=== PATIENT | female | born 1935 | race Caucasian/White ===

== ENCOUNTER 2016-10-18 10:06 | Outpatient (CLI) | payer OTHER ==
[~2016-10-18 10:06] MED LIST: CIPR-260 PO; GLIM4TAB2 PO; LEVO75TA7 PO; OMEP40CA33 PO; OXYB5TAB11 PO; SITA1TAB10 PO
== END 2016-10-18 19:50 | disposition home or self-care (01) ==
LOC: SUS 10:06
PROVIDERS: ATTEND Internal Medicine
DX: E87.5 Hyperkalemia (principal)
CPT/HCPCS: 76770

== ENCOUNTER 2016-11-12 11:13 | Outpatient (CLI) | payer OTHER ==
[~2016-11-12 11:13] MED LIST changes: +BACL10TA; +LEVO25TA7; +RABE20TA5; +SIMV10TA6; +SITA1TAB9
== END 2016-11-12 18:57 | disposition home or self-care (01) ==
LOC: SRD 11:13
PROVIDERS: ATTEND Internal Medicine
DX: M25.572 Pain in left ankle and joints of left foot (principal); Z87.828 Personal history of other (healed) physical injury and trauma

== ENCOUNTER 2018-02-06 08:48 | Inpatient (IN) | payer OTHER ==
[2018-02-05] MEDS: LR 1,000 ML IV SCH ×2 (11:30→13:57)
[2018-02-05] MEDS: fentaNYL CITRATE/PF 100 MCG/2 ML AMP IVP PRN ×2 (11:35→11:52)
[2018-02-05 12:23] VITALS: BP_SYST 130
[2018-02-05 12:48] VITALS: BP_SYST 130
[2018-02-05] MEDS: KETOROLAC TROMETHAMINE 15 MG VIAL IVP SCH ×2 (13:52→21:06)
[2018-02-05] MEDS: ceFAZolin SODIUM 2 GM in D5W 100 ML IV SCH ×2 (14:23→21:05)
[2018-02-05] MEDS: NORMAL SALINE 5 ML DISP.SYRIN IVF SCH ×2 (14:26→21:06)
[2018-02-05 16:29] VITALS: BP_SYST 123
[2018-02-05 20:00] VITALS: BP_SYST 135
[2018-02-05] MEDS: FLECAINIDE ACETATE 50 MG TABLET (TAMBOCOR) PO SCH (21:05)
[~2018-02-06] VITALS: Ht 165.1 cm; Wt 66.7 kg
[2018-02-06] VITALS (9 sets, daily range): BP systolic 83–164
[2018-02-06] MEDS: LR 1,000 ML IV SCH (02:31)
[2018-02-06] MEDS: OMEPRAZOLE 20 MG CAPSULE.DR (PriLOSEC) PO SCH (05:58)
[2018-02-06] MEDS: ceFAZolin SODIUM 2 GM in D5W 100 ML IV SCH (05:58)
[2018-02-06] MEDS: KETOROLAC TROMETHAMINE 15 MG VIAL IVP SCH (05:58)
[2018-02-06] MEDS: NORMAL SALINE 5 ML DISP.SYRIN IVF SCH ×3 (05:59→23:21)
[~2018-02-06 08:48] MED LIST changes: +APIX5TAB PO; +APIX5TAB4 PO; -BACL10TA; +CEFAZOLIN SOD 2 GM in D5W 50 ML IV ONE; +FLEC50TA2 PO; +HYDROcodone/ACETAMIN 10-325 MG TAB PO PRN; +HYDROcodone/ACETAMIN 5-325 MG TAB (NORCO/ VICODIN) PO PRN; -LEVO25TA7; +MORPHINE 2 MG/ML INJ. SYRINGE IVP PRN; +ONDANSETRON HCL 4 MG/2 ML VIAL IVP PRN; +POLYMYXIN 500,000/BACIT.10,000 UNITS in NS IRR 1 L IR ONE; -RABE20TA5; -SIMV10TA6; +SIMV40TA2 PO; +SITA100T11 PO; -SITA1TAB9; +fentaNYL CITRATE/PF 100 MCG/2 ML AMP IVP PRN; +fentaNYL CITRATE/PF 100 MCG/2 ML AMP ONE
[2018-02-06] MEDS: FLECAINIDE ACETATE 50 MG TABLET (TAMBOCOR) PO SCH ×2 (08:48→22:26)
[2018-02-06] MEDS ORDERED: LEVOTHYROXINE SODIUM 0.075 MG TABLET PO SCH (09:00)
[2018-02-06] MEDS ORDERED: DILTIAZEM HCL 25 MG/5 ML VIAL IVP ONE ×3 (09:30→11:45)
[2018-02-06 10:21] LABS: BASOPHILS # (AUTO) 0.1 K/uL (0.0-0.2); BASOPHILS % (AUTO) 0.7 % (0.0-2.0); EOSINOPHILS # (AUTO) 0.1 K/uL (0.0-0.4); EOSINOPHILS % (AUTO) 0.7 % (0.0-4.0); HEMATOCRIT 36.7 % (36-48); HEMOGLOBIN 12.4 g/dL (12.0-16.0); LYMPHOCYTES # (AUTO) 1.8 K/uL (1.0-5.5); LYMPHOCYTES % (AUTO) 16.7 % (20.5-51.5); MEAN CORPUSCULAR HEMOGLOBIN 31 pg (27-31); MEAN CORPUSCULAR HGB CONC 34 % (32-36); MEAN CORPUSCULAR VOLUME 90 fL (79.0-98.0); MONOCYTES # (AUTO) 0.7 K/uL (0.0-1.0); MONOCYTES % (AUTO) 6.6 % (1.7-9.3); NEUTROPHILS # (AUTO) 7.8 K/uL (1.8-7.7); NEUTROPHILS % (AUTO) 75.3 % (40.0-70.0); PLATELET COUNT (AUTO) 356 K/uL (130-430); RED BLOOD CELL COUNT(AUTO) 4.07 MIL/uL (4.2-6.2); RED CELL DISTRIBUTION WIDTH 14.1 % (9.0-15.0); WHITE BLOOD COUNT (AUTO) 10.5 K/uL (4.8-10.8)
[2018-02-06 10:22] LABS: ANION GAP 9 (5-15); CALCIUM 9.1 mg/dL (8.4-11.0); CHLORIDE 104 mmol/L (98-107); CREATININE 0.92 mg/dL (0.55-1.30); GLUCOSE 267 mg/dL (70-99); POTASSIUM 4.3 mmol/L (3.5-5.1); SODIUM SERUM 139 mmol/L (136-145); UREA NITROGEN, BLOOD 16 mg/dL (8-21)
[2018-02-06 10:37] LABS: ALANINE AMINOTRANSFERASE 15 U/L (12-78); ALBUMIN 3.5 g/dL (3.4-4.8); ASPARTATE AMINOTRANSFERASE 14 U/L (10-37); THYROID STIMULATING HORMONE 2.12 uIu/mL (0.34-4.82); TOTAL BILIRUBIN 0.2 mg/dL (0.0-1.0)
[2018-02-06] MEDS ORDERED: NEOSTIGMINE METHYLSULFATE 1 MG/ML, 10 ML VIAL ONE (11:30)
[2018-02-06] MEDS ORDERED: LR 1,000 ML IV.SOLN IV ONE (11:30)
[2018-02-06] MEDS ORDERED: SEVOFLURANE 15 MIN GAS INH ONE (11:30)
[2018-02-06] MEDS ORDERED: PHENYLEPHRINE HCL 10 MG/ML VIAL (NEOSYNEPHRINE) ONE (11:30)
[2018-02-06] MEDS ORDERED: BUPIVACAINE /EPINEPHRINE/PF 0.5% 30 ML VIAL INJ ONE (11:30)
[2018-02-06] MEDS ORDERED: ePHEDrine sulfate 50 MG/ML VIAL ONE (11:30)
[2018-02-06] MEDS ORDERED: DEXTROSE 50% JECT 50 ML DISP.SYRIN IVP PRN (11:30)
[2018-02-06] MEDS ORDERED: GLYCOPYRROLATE 0.2 MG/ML VIAL ONE (11:30)
[2018-02-06] MEDS ORDERED: fentaNYL CITRATE 250 MCG/5 ML AMP ONE (11:30)
[2018-02-06] MEDS ORDERED: ROCURONIUM BROMIDE 10 MG/ML (ZEMURON) ONE (11:30)
[2018-02-06] MEDS ORDERED: MIDAZOLAM HCL 5 MG/ML VIAL (VERSED) IV ONE (11:30)
[2018-02-06] MEDS ORDERED: PROPOFOL 200MG/ 20ML VIAL (DIPRIVAN) IV ONE (11:30)
[2018-02-06] MEDS: INSULIN REGULAR, HUMAN 100 UNITS/ML, 10 ML VIAL (novoLIN R) SUBCUT PRN (11:47)
[2018-02-06 11:51] LABS: BILIRUBIN,URINE NEGATIVE (NEGATIVE); CLARITY/URINE CLEAR (CLEAR); COLOR,URINE YELLOW (YELLOW); GLUCOSE,URINE 2+ (NEGATIVE); KETONES,URINE NEGATIVE (NEGATIVE); LEUKOCYTE ESTERASE ,URINE NEGATIVE (NEGATIVE); NITRITE, URINE NEGATIVE (NEGATIVE); PROTEIN URINE NEGATIVE (NEGATIVE); UROBILINOGEN,URINE 0.2 (0.2-1.0)
[2018-02-06 11:58] LABS: BLOOD, URINE TRACE (NEGATIVE)
[2018-02-06 12:35] LABS: BACTERIA,URINE FEW /HPF (None Seen); MUCUS,URINE None Seen /LPF (None Seen); RBC,URINE 0-3 /HPF (0-3); WBC,URINE NONE SEEN /HPF (0-3)
[2018-02-06] MEDS ORDERED: METOPROLOL TARTRATE 50 MG TABLET PO ONE ×2 (13:00→13:15)
[2018-02-06] MEDS ORDERED: APIXABAN 2.5 MG TABLET PO ONE (13:15)
[2018-02-06] MEDS ORDERED: HYDROcodone/ACETAMIN 10-325 MG TAB ONE (19:46)
[2018-02-06] MEDS ORDERED: METOPROLOL TARTRATE 50 MG TABLET PO SCH (21:00)
[2018-02-06] MEDS: METOPROLOL TARTRATE 50 MG TABLET PO SCH ×2 (22:27→22:29)
[2018-02-06] MEDS: APIXABAN 2.5 MG TABLET PO SCH (23:20)
[2018-02-07 00:50] VITALS: BP_SYST 132
[2018-02-07] MEDS ORDERED: OMEPRAZOLE 20 MG CAPSULE.DR (PriLOSEC) ONE (06:35)
[2018-02-07] MEDS: NORMAL SALINE 5 ML DISP.SYRIN IVF SCH (06:37)
[2018-02-07] MEDS: OMEPRAZOLE 20 MG CAPSULE.DR (PriLOSEC) PO SCH (06:37)
[2018-02-07] MEDS: INSULIN REGULAR, HUMAN 100 UNITS/ML, 10 ML VIAL (novoLIN R) SUBCUT PRN ×2 (06:43→12:53)
[2018-02-07] MEDS ORDERED: LEVOTHYROXINE SODIUM 0.075 MG TABLET PO SCH (07:00)
[2018-02-07] MEDS: APIXABAN 2.5 MG TABLET PO SCH (07:51)
[2018-02-07] MEDS: METOPROLOL TARTRATE 50 MG TABLET PO SCH ×2 (07:52→07:53)
[2018-02-07] MEDS: FLECAINIDE ACETATE 50 MG TABLET (TAMBOCOR) PO SCH (07:53)
[2018-02-07 08:00] VITALS: BP_SYST 123
[2018-02-07] MEDS ORDERED: METO-442 PO (10:35)
[2018-02-07] MEDS ORDERED: HYDR-4272 PO (10:37)
[2018-02-07 11:12] VITALS: BP_SYST 107
[2018-02-07 12:31] VITALS: BP_SYST 112
== END 2018-02-07 13:30 | disposition home or self-care (01) | DRG 351 ==
LOC: SDS 08:48 → SMU 08:48 → STU 08:49 → SDS 11:26
PROVIDERS: ADMIT Internal Medicine; ATTEND Surgery
PROC: 8E0W4CZ Robotic Assisted Procedure of Trunk Region, Percutaneous Endoscopic Approach (ICD-10-PCS; 2018-02-05)
PROC: 0YU54JZ Supplement Right Inguinal Region with Synthetic Substitute, Percutaneous Endoscopic Approach (ICD-10-PCS; principal; 2018-02-05 09:00)
DX: K40.91 Unilateral inguinal hernia, without obstruction or gangrene, recurrent (principal); D68.69 Other thrombophilia; E78.5 Hyperlipidemia, unspecified; M10.9 Gout, unspecified; E11.9 Type 2 diabetes mellitus without complications; E03.9 Hypothyroidism, unspecified; I48.0 Paroxysmal atrial fibrillation; D50.9 Iron deficiency anemia, unspecified; F41.9 Anxiety disorder, unspecified; I49.8 Other specified cardiac arrhythmias; K57.90 Diverticulosis of intestine, part unspecified, without perforation or abscess without bleeding; I10 Essential (primary) hypertension; Z90.49 Acquired absence of other specified parts of digestive tract; Z90.710 Acquired absence of both cervix and uterus; Z98.1 Arthrodesis status; Z79.01 Long term (current) use of anticoagulants; Z79.899 Other long term (current) drug therapy
CPT/HCPCS: 36415; 71046-TC; 80053; 81000-TC; 82962; 84443-TC; 85025; 87081; 93005; 93306; C1727; C1781; J0690; J1815; J1885; J2250; J2270; J2370; J2704; J2710; J3010; J3490; J7060; J7120

== ENCOUNTER 2018-02-20 22:43 | Inpatient (IN) | payer OTHER, MEDICAID ==
[~2018-02-20] VITALS: Ht 165.1 cm; Wt 66.7 kg
[~2018-02-20 22:43] MED LIST changes: -CEFAZOLIN SOD 2 GM in D5W 50 ML IV ONE; -CIPR-260 PO; +HYDR-4272 PO; -HYDROcodone/ACETAMIN 10-325 MG TAB PO PRN; -HYDROcodone/ACETAMIN 5-325 MG TAB (NORCO/ VICODIN) PO PRN; +METO-442 PO; -MORPHINE 2 MG/ML INJ. SYRINGE IVP PRN; -ONDANSETRON HCL 4 MG/2 ML VIAL IVP PRN; -POLYMYXIN 500,000/BACIT.10,000 UNITS in NS IRR 1 L IR ONE; -fentaNYL CITRATE/PF 100 MCG/2 ML AMP IVP PRN; -fentaNYL CITRATE/PF 100 MCG/2 ML AMP ONE
[2018-02-20 22:54] VITALS: BP_SYST 140
--- NOTE | 2018-02-20 22:54 | NUR ---
Patient to ER bed 02 to gown for evaluation. Side rails up. Report given to MALINI Hargrove
--- NOTE | 2018-02-20 23:19 | NUR ---
BERNARDINO Escobar at bedside examining patient.
[2018-02-20] MEDS ORDERED: DILTIAZEM HCL 25 MG/5 ML VIAL IVP ONE (23:30)
[2018-02-20] MEDS ORDERED: NACL 0.9% 1,000 ML IV ONE (23:30)
--- NOTE | 2018-02-20 23:30 | NUR ---
pt seen in bed 2. c/o feeling palpitations since 8am today. Afib on the air sampling and monitoring currently at 120-130. no accompanied chest pain. denies shortness of breath.
[2018-02-20 23:47] LABS: BASOPHILS % (AUTO) 0.4 % (0.0-2.0); EOSINOPHILS # (AUTO) 0.3 K/uL (0.0-0.4); EOSINOPHILS % (AUTO) 2.1 % (0.0-4.0); HEMATOCRIT 37.3 % (36-48); HEMOGLOBIN 12.6 g/dL (12.0-16.0); MEAN CORPUSCULAR HEMOGLOBIN 31 pg (27-31); MEAN CORPUSCULAR HGB CONC 34 % (32-36); MEAN CORPUSCULAR VOLUME 91 fL (79.0-98.0); MONOCYTES # (AUTO) 0.3 K/uL (0.0-1.0); MONOCYTES % (AUTO) 2.3 % (1.7-9.3); NEUTROPHILS # (AUTO) 10.6 K/uL (1.8-7.7); NEUTROPHILS % (AUTO) 87.2 % (40.0-70.0); PLATELET COUNT (AUTO) 393 K/uL (130-430); RED CELL DISTRIBUTION WIDTH 14.3 % (9.0-15.0); WHITE BLOOD COUNT (AUTO) 12.2 K/uL (4.8-10.8)
[2018-02-20 23:59] LABS: ALANINE AMINOTRANSFERASE 159 U/L (12-78); ALBUMIN 3.8 g/dL (3.4-4.8); ANION GAP 12 (5-15); ASPARTATE AMINOTRANSFERASE 502 U/L (10-37); CALCIUM 9.3 mg/dL (8.4-11.0); CHLORIDE 102 mmol/L (98-107); CREATININE 1.25 mg/dL (0.55-1.30); GLUCOSE 177 mg/dL (70-99); POTASSIUM 3.8 mmol/L (3.5-5.1); SODIUM SERUM 138 mmol/L (136-145); TOTAL BILIRUBIN 0.7 mg/dL (0.0-1.0)
[2018-02-21 00:06] LABS: UREA NITROGEN, BLOOD 35 mg/dL (8-21)
[2018-02-21] MEDS ORDERED: DILTIAZEM HCL 25 MG/5 ML VIAL IVP ONE (00:30)
[2018-02-21 01:00] LABS: BILIRUBIN,URINE NEGATIVE (NEGATIVE); BLOOD, URINE 1+ (NEGATIVE); CLARITY/URINE CLEAR (CLEAR); COLOR,URINE YELLOW (YELLOW); GLUCOSE,URINE NEGATIVE (NEGATIVE); KETONES,URINE NEGATIVE (NEGATIVE); LEUKOCYTE ESTERASE ,URINE 1+ (NEGATIVE); NITRITE, URINE NEGATIVE (NEGATIVE); PH,URINE 5.5 (5.0-8.0); PROTEIN URINE NEGATIVE (NEGATIVE); UROBILINOGEN,URINE 0.2 (0.2-1.0)
--- NOTE | 2018-02-21 01:21 | NUR ---
Medication reconciliation completed with information provided by daughter. Any prior medication reconciliation on file was reviewed and corrected.
--- NOTE | 2018-02-21 01:22 | NUR ---
Patient is full code. No Polst in file. Family at bedside. States she is full code
[2018-02-21 01:25] LABS: BACTERIA,URINE FEW /HPF (None Seen)
--- NOTE | 2018-02-21 01:40 | NUR ---
ADMISSION: The patient, SHAKEEL ASENCIO, 82 y/o, F admitted by MANUEL CALLOWAY MD, was given written information regarding hospital policies, unit procedures and contact persons.
[2018-02-21 01:45] VITALS: BP_SYST 141
[2018-02-21] MEDS ORDERED: DILTIAZEM HCL 125 MG in D5W 100 ML IV SCH ×2 (01:45→08:50)
--- NOTE | 2018-02-21 01:50 | NUR ---
Patient will be admitted to care of DR. CALLOWAY. Admitted to TELEMTRY unit. Will go to room 106A. Belongings list completed. Summary report printed. Report given at bedside TO JAG NAYAK.
--- NOTE | 2018-02-21 01:50 | NUR ---
RECEIVED PT RECEIVED PT FROM ADMIT NURSE. PT IS SITTING UP AWAKE IN BED. IV INTACT AND INFUSING BOLUS FROM ER. PT IN STABLE CONDITION. NO REPORT OF PAIN. FALL AND SAFETY PRECAUTIONS IN PLACE, BED LOCKED IN LOWEST POSITION, BED ALARM ON. WILL CONTINUE TO MONITOR.
--- NOTE | 2018-02-21 03:30 | NUR ---
BRODIE. ORDERS INFORMED DR. CALLOWAY OF PT CONVERTING TO SR, PAIN MEDICATION, DM AND REQUEST FOR SLEEPING MEDICATION. RECEIVED NEW ORDERS. WILL FOLLOW THROUGH WITH ORDERS.
[2018-02-21] MEDS ORDERED: MORPHINE 2 MG/ML INJ. SYRINGE IVP SCH (04:00)
[2018-02-21] MEDS ORDERED: MORPHINE 2 MG/ML INJ. SYRINGE IVP PRN (04:15)
[2018-02-21] MEDS ORDERED: ALBUTEROL SULFATE 0.083% 2.5 MG/3 ML VIAL.NEB INH PRN (04:15)
[2018-02-21 04:25] VITALS: BP_SYST 141
--- NOTE | 2018-02-21 04:30 | NUR ---
CONSULTATION PAGED DR NELSON FOR ROUTINE CONSULTATION DR ANDRADE WAS PRIMARY MILL ROLLER SPOKE WITH HEAD OF GLOBAL STRATEGIC PARTNERSHIPS 22
[2018-02-21] MEDS ORDERED: D5W 1,000 ML IV PRN (05:49)
[2018-02-21] MEDS ORDERED: GLUCOSE 15 GM GEL (in 37.5 GM TUBE) PO PRN ×2 (06:00)
[2018-02-21] MEDS ORDERED: DEXTROSE 50% JECT 50 ML DISP.SYRIN IVP PRN ×2 (06:00)
[2018-02-21] MEDS: LEVOTHYROXINE SODIUM 0.075 MG TABLET PO SCH (06:29)
[2018-02-21] MEDS: PANTOPRAZOLE SODIUM 40 MG TAB PO SCH (06:30)
--- NOTE | 2018-02-21 06:32 | NUR ---
MEDICATION ADMINISTRATION/ BLOOD SUGAR ADMINISTERED MEDICATION PER ORDER. BLOOD SUGAR READING OF 163, COVERAGE GIVE PER SLIDING SCALE. NO OTHER NEEDS. WILL CONTINUE TO MONITOR.
[2018-02-21] MEDS: INSULIN REGULAR, HUMAN 100 UNITS/ML, 10 ML VIAL (novoLIN R) SUBCUT PRN (06:34)
--- NOTE | 2018-02-21 07:20 | NUR ---
CLOSING NOTE ENDORSED CARE AND REPORT TO DAY SHIFT NURSE. PT IN STABLE CONDITION. ALL NEED MET THROUGHOUT SHIFT. INFORMED DAY SHIFT OF NEW ORDERS AND PT CHANGES THROUGHOUT NIGHT. PT MEDICATED FOR PAIN ONCE ON SHIFT. FALL AND SAFETY PRECAUTIONS MAINTAINED. CALL LIGHT WITH PT.
--- NOTE | 2018-02-21 07:30 | NUR ---
AM rounds patient resting in bed, a/ox4, denies pain, patient was assisted to the restroom by Charge Nurse Nate RN, I assisted the patient back into bed, she had a BM, patient is ambulatory needs stand by assistance, assessment complete, IV line is patent and infusing well, educated the patient on plan of care and call light system and to call for any assistance, she verbalized understanding, bed in lowest position, two side rails up, call light within reach, fall and aspiration precautions in place.
[2018-02-21 07:58] LABS: BASOPHILS % (AUTO) 0.3 % (0.0-2.0); EOSINOPHILS # (AUTO) 0.1 K/uL (0.0-0.4); EOSINOPHILS % (AUTO) 0.9 % (0.0-4.0); HEMOGLOBIN 12.1 g/dL (12.0-16.0); LYMPHOCYTES # (AUTO) 0.7 K/uL (1.0-5.5); LYMPHOCYTES % (AUTO) 5.9 % (20.5-51.5); MEAN CORPUSCULAR HEMOGLOBIN 30 pg (27-31); MEAN CORPUSCULAR HGB CONC 34 % (32-36); MEAN CORPUSCULAR VOLUME 90 fL (79.0-98.0); MONOCYTES # (AUTO) 0.6 K/uL (0.0-1.0); MONOCYTES % (AUTO) 4.5 % (1.7-9.3); NEUTROPHILS # (AUTO) 10.9 K/uL (1.8-7.7); NEUTROPHILS % (AUTO) 88.4 % (40.0-70.0); PLATELET COUNT (AUTO) 340 K/uL (130-430); RED CELL DISTRIBUTION WIDTH 14.2 % (9.0-15.0); WHITE BLOOD COUNT (AUTO) 12.3 K/uL (4.8-10.8)
[2018-02-21 08:11] LABS: ANION GAP 9 (5-15); CALCIUM 8.9 mg/dL (8.4-11.0); CHLORIDE 105 mmol/L (98-107); CREATININE 0.94 mg/dL (0.55-1.30); GLUCOSE 135 mg/dL (70-99); POTASSIUM 4.1 mmol/L (3.5-5.1); SODIUM SERUM 141 mmol/L (136-145); UREA NITROGEN, BLOOD 30 mg/dL (8-21)
[2018-02-21 08:15] VITALS: BP_SYST 151
[2018-02-21 08:22] LABS: ALANINE AMINOTRANSFERASE 142 U/L (12-78); ALBUMIN 3.3 g/dL (3.4-4.8); ASPARTATE AMINOTRANSFERASE 194 U/L (10-37); TOTAL BILIRUBIN 0.3 mg/dL (0.0-1.0)
[2018-02-21] MEDS ORDERED: METOPROLOL TARTRATE 50 MG TABLET PO SCH (09:00)
[2018-02-21] MEDS ORDERED: NON-FORMULARY MEDICATION (Apixaban (Eliquis) 5 MG) PO SCH (09:00)
[2018-02-21] MEDS: NACL 0.9% 1,000 ML IV SCH (09:03)
[2018-02-21] MEDS: FLECAINIDE ACETATE 50 MG TABLET (TAMBOCOR) PO SCH ×2 (09:05→21:36)
[2018-02-21] MEDS: APIXABAN 2.5 MG TABLET PO SCH ×2 (09:05→21:36)
--- NOTE | 2018-02-21 09:05 | NUR ---
Medications patient resting in bed, awake, denies pain, educated on morning medications, uses and potential side effects, she verbalized understanding and tolerated well, assisted the patient to the restroom and back into bed, she tolerated well, ambulatory, needs standby assist, IV line is patent and infusing well, continuing to monitor, bed in lowest position, two side rails up, call light within reach, fall and aspiration precautions in place.
[2018-02-21] MEDS ORDERED: METOPROLOL TARTRATE 25 MG TABLET PO ONE (10:00)
--- NOTE | 2018-02-21 10:04 | NUR ---
Dr. Gandara rounds aware that patient went into A Fib and converted back into ST about 20 minutes later, will follow up with new orders.
--- NOTE | 2018-02-21 10:43 | NUR ---
Patient feeling dizzy/ABD US notified by technical cable jointer that the patient is having "pauses" charge nurse at bedside, assisting the patient to bedside commode, patient tolerated well, but states feeling dizzy, patient returned to bed, ABD US complete, provided the patient with orange juice and blood glucose checked, blood glucose is 104 at this time, no insulin coverage per MD orders, educated the patient on another does to metoprolol x1 per MD orders, patient verbalized understanding and tolerated well, patient would like to sit at the side of the bed, instructed her to call for assistance, call light placed within reach, fall and aspiration precautions in place, continuing to monitor.
[2018-02-21 12:20] VITALS: BP_SYST 110; BP_SYST 134
--- NOTE | 2018-02-21 12:30 | NUR ---
RN rounds patient resting in bed, eyes closed, breathing is even and unlabored, no signs of distress, continuing to monitor, in stable condition, bed in lowest position, two side rails up, bed alarm on, call light within reach, fall and aspiration precautions in place.
[2018-02-21] MEDS ORDERED: metroNIDAZOLE 500 mg/NS 100 ML IV SCH (13:15)
--- NOTE | 2018-02-21 13:15 | NUR ---
CONSULTATION PAGED REASON FOR CONSULTATION:ABD PAIN WAS CONSULT CALLED?Y PERSON WHO WAS NOTIFIED:BLADE CONSULTING PHYSICIAN:TODD LIMON LIFT TRUCK OPERATOR SPECIALTY:SURGEON LIFT TRUCK OPERATOR PHONE NUMBER:[phone] ORDERING PHYSICIAN:CRITSELA REYNAGA
[2018-02-21] MEDS: metroNIDAZOLE 500 mg/NS 100 ML IV SCH ×2 (13:36→21:34)
--- NOTE | 2018-02-21 13:40 | NUR ---
Dr. Maxwell called regarding consultation, updates given, radiology and lab reports, reported, Dr. Maxwell not in town, but states that the patient seems as if immediate intervention is not required at this time, but if any further questions call him.
--- NOTE | 2018-02-21 13:42 | NUR ---
RN rounds/IV antibiotic patient resting in bed, awake, denies pain, but states she has abdominal discomfort, assisted the patient to the restroom, she voided and then patient returned to bed, educated the patient on IV antibiotic uses and potential side effects, she verbalized understanding, IV line is patent and infusing well, patient in stable condition, bed in lowest position, two side rails up, bed alarm on, call light within reach, fall and aspiration precautions in place.
--- NOTE | 2018-02-21 14:25 | NUR ---
Transfer of Care to Karishma NAYAK, patient in stable condition.
--- NOTE | 2018-02-21 14:25 | NUR ---
transfer of care received report from rn. pt vital signs stable. no distress noted. pt laying down watching tv. bed alarm in place with bed in the lowest position.
--- NOTE | 2018-02-21 14:58 | NUR ---
dr atkins paged for + blood culture . awaiting call back
[2018-02-21] MEDS: LEVOFLOXACIN 500 MG/D5W 100 ML IV SCH (15:12)
--- NOTE | 2018-02-21 15:15 | NUR ---
med pass ivpb jean hung at this time. safety maintained.
[2018-02-21 15:20] VITALS: BP_SYST 134
--- NOTE | 2018-02-21 16:42 | NUR ---
blood sugar check blood sugar checked- 109 no coverage needed. safety maintained.
--- NOTE | 2018-02-21 16:51 | NUR ---
MD ABDI CALLED [facility]REZVANI SANTANA FARHAD MANAGER DISH.
--- NOTE | 2018-02-21 18:21 | NUR ---
closing note all needs met through shift. safety maintained. will endorse care to manufacturing supervisor 2nd shift
--- NOTE | 2018-02-21 19:30 | NUR ---
PM ASSESSMENT REPORT RECEIVED FROM AM RN. PT RECEIVED IN BED WITH EYES OPEN, AAOX4, AND ABLE TO VERBALIZE NEEDS. PT ON RA, SAT 97%. SR ON MONITOR. RAC 18G INFUSING NS @ 50 CC/HR. IV SITE PATENT AND INTACT. PT VERBALIZING AT THIS TIME THAT SHE "DOES NOT WANT ANY LAB WORK DRAWN ON HER AND SHE IS TIRED OF GETTING POKED ALL THE TIME", PT EDUCATED ON IMPORTANCE OF DAILY LAB DRAWS AND PT STILL REFUSES. HOB ELEVATED, BED IN LOWEST POSITION, CALL LIGHT IN REACH. WILL CONTINUE TO MONITOR PT.
[2018-02-21 20:00] VITALS: BP_SYST 121
[2018-02-21] MEDS: METOPROLOL TARTRATE 50 MG TABLET PO SCH (21:35)
--- NOTE | 2018-02-21 22:00 | NUR ---
RN ROUNDS PT RESTING COMFORTABLY IN BED. BREATHING IS EVEN AND UNLABORED ON RA. NO S/S OF DISTRESS NOTED. WILL CONTINUE TO MONITOR PT.
--- NOTE | 2018-02-21 22:10 | NUR ---
FAMILY UPDATE PTS DAUGHTER CALLED FOR UPDATE ON HER MOTHER. ALL QUESTIONS ANSWERED. PT MADE AWARE THAT DAUGHTER CALLED IN FOR UPDATES AND THAT DAUGHTER WAS MADE AWARE OF PTS REFUSAL FOR AM LAB DRAW. PT CLARIFIED THAT IN THE ER "THEY WERE SO ROUGH WITH HER BLOOD DRAWS BUT THE LADY THIS MORNING WAS OKAY". PT AGREES TO HAVE BLOOD DRAWN FOR AM LABS AT THIS TIME.
--- NOTE | 2018-02-21 23:55 | NUR ---
RN ROUNDS PT C/O 02/06 MITCHELL AND PAIN AT ABD INCISION SITE. PT GIVEN MORPHINE PER ORDERS AND EDUCATED ON MEDICATION PURPOSE AND SIDE EFFECTS. PT STATES THAT LAST TIME SHE RECEIVED MORPHINE SHE FELT A BURNING SENSATION IN HER IV SITE. PT EDUCATED THAT I WILL DILUTE THE MEDICATION WITH NS AND PUSH IT VERY SLOWLY. PT DENIES ANY BURNING SENSATION AFTER MEDIATION HAS BEEN GIVEN. NO OTHER NEEDS VERBALIZED AT THIS TIME. WILL CONTINUE TO MONITOR PT.
--- NOTE | 2018-02-22 | NUR ---
RN ROUNDS PT RESTING COMFORTABLY IN BED WITH EYES CLOSED. BREATHING IS EVEN AND UNLABORED ON RA. NO S/S OF DISTRESS NOTED. WILL CONTINUE TO MONITOR PT.
[2018-02-22 00:31] VITALS: BP_SYST 142
[2018-02-22] MEDS: ZOLPIDEM TARTRATE 5 MG TABLET PO PRN ×2 (02:37→21:25)
--- NOTE | 2018-02-22 02:40 | NUR ---
RN ROUNDS PT ASSISTED TO BEDSIDE COMMODE TO VOID. PT ABLE TO AMBULATE WITH ASSISTANCE, PT RETURNED TO BED AND ABLE TO MAKE HERSELF COMFORTABLE WITH LITTLE ASSISTANCE. PER PT SHE IS STILL HAVING TROUBLE SLEEPING. ESMEIEN GIVEN PER ORDERS. WILL CONTINUE TO MONITOR PT.
--- NOTE | 2018-02-22 04:00 | NUR ---
RN ROUNDS PT RESTING COMFORTABLY IN BED WITH EYES CLOSED. BREATHING IS EVEN AND UNLABORED ON RA, NO S/S OF DISTRESS NOTED. WILL CONTINUE TO MONITOR.
[2018-02-22] MEDS: NACL 0.9% 1,000 ML IV SCH (04:05)
[2018-02-22] MEDS: LEVOTHYROXINE SODIUM 0.075 MG TABLET PO SCH (06:07)
[2018-02-22] MEDS: metroNIDAZOLE 500 mg/NS 100 ML IV SCH ×3 (06:07→21:26)
[2018-02-22] MEDS: PANTOPRAZOLE SODIUM 40 MG TAB PO SCH (06:07)
[2018-02-22 06:33] LABS: BASOPHILS % (AUTO) 0.7 % (0.0-2.0); EOSINOPHILS # (AUTO) 0.4 K/uL (0.0-0.4); EOSINOPHILS % (AUTO) 6.3 % (0.0-4.0); HEMATOCRIT 33.6 % (36-48); HEMOGLOBIN 11.4 g/dL (12.0-16.0); LYMPHOCYTES # (AUTO) 1.2 K/uL (1.0-5.5); LYMPHOCYTES % (AUTO) 17.6 % (20.5-51.5); MEAN CORPUSCULAR HEMOGLOBIN 31 pg (27-31); MEAN CORPUSCULAR HGB CONC 34 % (32-36); MEAN CORPUSCULAR VOLUME 91 fL (79.0-98.0); MONOCYTES # (AUTO) 0.7 K/uL (0.0-1.0); MONOCYTES % (AUTO) 11.2 % (1.7-9.3); NEUTROPHILS # (AUTO) 4.3 K/uL (1.8-7.7); NEUTROPHILS % (AUTO) 64.2 % (40.0-70.0); PLATELET COUNT (AUTO) 282 K/uL (130-430); RED BLOOD CELL COUNT(AUTO) 3.69 MIL/uL (4.2-6.2); RED CELL DISTRIBUTION WIDTH 14.1 % (9.0-15.0)
--- NOTE | 2018-02-22 06:40 | NUR ---
CLOSING NOTES PT RESTING COMFORTABLY IN BED, BREATHING IS EVEN AND UNLABORED ON RA. NO S/S OF DISTRESS NOTED. ACCUCHECK 126, NO INSULIN COVERAGE NEED. PT EDUCATED ON AM MEDS AND SIDE EFFECTS. IV SITE PATENT AND INTACT, IVF STILL INFUSING. PT DENIES ANY PAIN OR DISCOMFORT THAT THIS TIME. PT DENIES ANY OTHER NEEDS AT THIS TIME. WILL CONTINUE TO MONITOR AND ENDORSE ALL CARE TO AM RN.
[2018-02-22 07:01] LABS: ALANINE AMINOTRANSFERASE 87 U/L (12-78); ANION GAP 6 (5-15); ASPARTATE AMINOTRANSFERASE 46 U/L (10-37); CALCIUM 8.6 mg/dL (8.4-11.0); CHLORIDE 105 mmol/L (98-107); CREATININE 0.83 mg/dL (0.55-1.30); GLUCOSE 119 mg/dL (70-99); POTASSIUM 4.3 mmol/L (3.5-5.1); SODIUM SERUM 137 mmol/L (136-145); TOTAL BILIRUBIN 0.4 mg/dL (0.0-1.0); UREA NITROGEN, BLOOD 20 mg/dL (8-21)
[2018-02-22 07:10] LABS: WHITE BLOOD COUNT (AUTO) 6.6 K/uL (4.8-10.8)
[2018-02-22 08:00] VITALS: BP_SYST 106
--- NOTE | 2018-02-22 08:00 | NUR ---
OPENING NOTE PATIENT IS AWAKE, ALERT, ATE 100% OF BREAKFAST.
--- NOTE | 2018-02-22 08:34 | NUR ---
ASSISTED PATIENT TO COMMODE, OFFERED A WASHCLOTH FOR HER FACE. PATIENT AWAKE, ALERT, AND STABLE ON FEET.
[2018-02-22] MEDS: FLECAINIDE ACETATE 50 MG TABLET (TAMBOCOR) PO SCH ×3 (09:00→20:51)
[2018-02-22] MEDS: METOPROLOL TARTRATE 50 MG TABLET PO SCH ×3 (09:00→20:51)
--- NOTE | 2018-02-22 09:28 | NUR ---
bp meds held per ernestina Kendall rn due to low sbp and hr below normal.
[2018-02-22] MEDS: APIXABAN 2.5 MG TABLET PO SCH ×2 (09:55→20:54)
[2018-02-22 10:11] LABS: HEPATITIS A AB, IgM Negative (Negative); HEPATITIS B CORE AB, IgM Negative (Negative); HEPATITIS B SURFACE AG Negative (Negative)
--- NOTE | 2018-02-22 11:30 | NUR ---
bg 132, no coverage needed
--- NOTE | 2018-02-22 12:14 | NUR ---
pt noted to be in a fib again, 108, 116/65. medications from AM administered.
[2018-02-22 12:30] VITALS: BP_SYST 114
[2018-02-22] MEDS: LEVOFLOXACIN 500 MG/D5W 100 ML IV SCH (14:22)
[2018-02-22 16:20] VITALS: BP_SYST 105
[2018-02-22 20:00] VITALS: BP_SYST 133
--- NOTE | 2018-02-22 20:00 | NUR ---
INITIAL NOTES RECEIVED PATIENT ON BED AWAKE AND RESTING, ON HIGH LUONG'S POSITION, WITH FAMILY ON THE BEDSIDE, BREATHING EVEN AND UNLABORED, MAINTAINED POSITION OF COMFORT AND SAFETY, NO PAIN NOTED, EXPLAINED THE PLAN OF CARE AND STATED UNDERSTANDING, WITH IVF INFUSING WELL, CLEAN DRY INTACT, WILL CONTINUE TO MONITOR CALL LIGHT WITHIN REACH.
[2018-02-22] MEDS: INSULIN REGULAR, HUMAN 100 UNITS/ML, 10 ML VIAL (novoLIN R) SUBCUT PRN (20:43)
--- NOTE | 2018-02-22 22:30 | NUR ---
RN ROUNDS PATIENT ON BED AWAKE AND RESTING AND STATED THAT SHE IS NOW TRYING TO GET TO SLEEP, NO SOB NOTED, ON STABLE CONDITION, WILL CONTINUE TO MONITOR, SAFETY MAINTAINED CALL LIGHT WITHIN REACH
[2018-02-23 00:23] VITALS: BP_SYST 123
--- NOTE | 2018-02-23 00:27 | NUR ---
RN ROUNDS PATIENT SLEEPING AND RESTING, ON STABLE CONDITION, KEPT COMFORTABLE, WILL CONTINUE TO MONITOR CALL LIGHT WITHIN REACH.
--- NOTE | 2018-02-23 02:06 | NUR ---
RN ROUNDS PATIENT ON BED SLEEPING AND RESTING ON STABLE CONDITION, NO PAIN NOTED WILL CONTINUE TO MONITOR CALL LIGHT WITHIN REACH.
[2018-02-23] MEDS: NACL 0.9% 1,000 ML IV SCH ×2 (02:46→21:00)
--- NOTE | 2018-02-23 04:21 | NUR ---
RN ROUNDS PATIENT ON BED SLEEPING AND RESTING, ON STABLE CONDITION, NO SIGNS OF DISTRESS NOTED, SAFETY MAINTAINED WILL CONTINUE TO MONITOR ALTAF LIGHT WITHIN REACH.
[2018-02-23] MEDS: PANTOPRAZOLE SODIUM 40 MG TAB PO SCH (05:59)
[2018-02-23] MEDS: metroNIDAZOLE 500 mg/NS 100 ML IV SCH ×3 (05:59→21:41)
[2018-02-23] MEDS: LEVOTHYROXINE SODIUM 0.075 MG TABLET PO SCH (05:59)
[2018-02-23] MEDS: INSULIN REGULAR, HUMAN 100 UNITS/ML, 10 ML VIAL (novoLIN R) SUBCUT PRN ×3 (06:02→21:49)
--- NOTE | 2018-02-23 06:41 | NUR ---
CLOSING NOTES PATIENT ON BED AWAKE AND RESTING BREATHING EVEN AND UNLABORED, NO PAIN NOTED, KEPT PATIENT COMFORTABLE, ALL NEEDS MET, PATIENT ON STABLE CONDITION. IVF INFUSING WELL, SAFETY MAINTAINED WILL GIVE REPORT TO AM NURSE, WILL CONTINUE TO MONITOR CALL LIGHT WITHIN REACH.
[2018-02-23 08:00] VITALS: BP_SYST 90
--- NOTE | 2018-02-23 08:06 | NUR ---
Nutrition Update Ash Scale 18 noted. Pt admitted for Atrial fibrillation w/ ventricular response Diet: [facility] diet BMI: 24.5 kg/m2 RD to follow per nutrition care standards.
--- NOTE | 2018-02-23 08:30 | NUR ---
OPENING NOTE PATIENT AWAKE AND ALERT, ASSISTED TO RESTROOM. PT STATES SHE NEEDS TO USE TOILED FOR BM. HR CURRENTLY IN HIGH 90'S ATRIAL FIBRILLATION. REPORTS MILD DIZZINESS
[2018-02-23 08:38] LABS: CHOLESTEROL 163 mg/dL (<200); HDL CHOLESTEROL 53 mg/dL (>55); LDL CHOLESTEROL 89 mg/dL (<100); LIPASE 102 U/L (73-393); TRIGLYCERIDES 82 mg/dL (30-150)
--- NOTE | 2018-02-23 08:55 | NUR ---
RETURNED PATIENT TO BED. REPORTED NO BM, JUST GAS. HR IS NOW CHRISTIAN CARDIC. BP 90/54
[2018-02-23] MEDS: METOPROLOL TARTRATE 50 MG TABLET PO SCH ×3 (09:00→21:40)
[2018-02-23] MEDS: FLECAINIDE ACETATE 50 MG TABLET (TAMBOCOR) PO SCH ×3 (09:00→21:40)
--- NOTE | 2018-02-23 09:20 | NUR ---
BETA BLOCKERS HELD PENDING IMPROVED VITAL SIGNS
[2018-02-23] MEDS: APIXABAN 2.5 MG TABLET PO SCH ×2 (09:42→21:45)
--- NOTE | 2018-02-23 10:11 | NUR ---
CONSULT SURGICAL ABDOMINAL PAIN DR BUENO [phone] S/W [facility] OFFICE @ [phone]
--- NOTE | 2018-02-23 10:18 | NUR ---
BETA BLOCKERS ADMINISTERED PER DR WHITE ORDER IN ORDER TO CONTROL HEART RATE, AND PERIODS OF A FIB. INFORMED MD OF LOW BP AND TENDENCY TO CONVERT TO SINUS CHRISTIAN/CHRISTIAN
[2018-02-23] MEDS ORDERED: PIPERACILLIN/TAZO 3.375/DEX-IS 50 ML IV ONE (11:00)
[2018-02-23 11:34] LABS: BASOPHILS % (AUTO) 0.5 % (0.0-2.0); EOSINOPHILS # (AUTO) 0.5 K/uL (0.0-0.4); EOSINOPHILS % (AUTO) 6.1 % (0.0-4.0); HEMATOCRIT 34.3 % (36-48); HEMOGLOBIN 11.6 g/dL (12.0-16.0); LYMPHOCYTES # (AUTO) 1.3 K/uL (1.0-5.5); LYMPHOCYTES % (AUTO) 16.6 % (20.5-51.5); MEAN CORPUSCULAR HEMOGLOBIN 31 pg (27-31); MEAN CORPUSCULAR HGB CONC 34 % (32-36); MEAN CORPUSCULAR VOLUME 92 fL (79.0-98.0); MONOCYTES # (AUTO) 0.6 K/uL (0.0-1.0); NEUTROPHILS # (AUTO) 5.2 K/uL (1.8-7.7); NEUTROPHILS % (AUTO) 68.8 % (40.0-70.0); PLATELET COUNT (AUTO) 304 K/uL (130-430); RED BLOOD CELL COUNT(AUTO) 3.75 MIL/uL (4.2-6.2); RED CELL DISTRIBUTION WIDTH 14.5 % (9.0-15.0); WHITE BLOOD COUNT (AUTO) 7.6 K/uL (4.8-10.8)
[2018-02-23 11:40] LABS: ANION GAP 7 (5-15); CALCIUM 8.5 mg/dL (8.4-11.0); CHLORIDE 104 mmol/L (98-107); CREATININE 0.95 mg/dL (0.55-1.30); GLUCOSE 202 mg/dL (70-99); POTASSIUM 4.1 mmol/L (3.5-5.1); SODIUM SERUM 135 mmol/L (136-145); UREA NITROGEN, BLOOD 22 mg/dL (8-21)
[2018-02-23 11:45] LABS: ALANINE AMINOTRANSFERASE 55 U/L (12-78); ALBUMIN 2.9 g/dL (3.4-4.8); ASPARTATE AMINOTRANSFERASE 16 U/L (10-37); TOTAL BILIRUBIN 0.2 mg/dL (0.0-1.0)
[2018-02-23 12:00] VITALS: BP_SYST 125
--- NOTE | 2018-02-23 12:28 | NUR ---
patient states she feels light headed, a fib noted on monitor. bp 110/65
--- NOTE | 2018-02-23 14:58 | NUR ---
ASYSTOLE PATIENT HAD BRIEF PERIOD OF ASYSTOLE. NO ELECTRICAL ACTIVITY ON HEART MONITOR FOR APPROX 4 SECONDS. PATIENT REPORTED FEELING "SOMETHING FUNNY" AND HELD HER HAND TO HER CHEST. SPOKE WITH HER DAUGHTER, KATIE, WHO SAID THAT THE PATIENT HAS REPORTED THIS SAME FEELING OVER THE YEARS, WHILE AT REST AT HOME.
[2018-02-23] MEDS: LEVOFLOXACIN 500 MG/D5W 100 ML IV SCH (15:06)
--- NOTE | 2018-02-23 16:21 | NUR ---
ASSISTED PATIENT TO COMMODE AGAIN, URINE, NO BM. PATIENT DENIES ABDOMINAL PAIN AT THIS TIME.
[2018-02-23 16:55] VITALS: BP_SYST 131
[2018-02-23] MEDS: PIPERACILLIN/TAZO 3.375/DEX-IS 50 ML IV SCH ×2 (18:17→23:36)
--- NOTE | 2018-02-23 19:48 | NUR ---
Initial note: Received handoff report from dayshift RN. Patient is awake in bed, no signs or symptoms of acute distress noted. IV fluids infusing well to patient's right AC. Bedside commode noted. Safety and fall precautions in place. Call light is with patient. Will continue with plan of care.
[2018-02-23 20:28] VITALS: BP_SYST 111
--- NOTE | 2018-02-23 21:49 | NUR ---
Blood sugar 226: Patient's blood sugar at this time is 226. 4 units of regular insulin administered subcutaneously per MD order, cosigned with another RN per protocol. Education was provided regarding side effects prior to administration. Will continue monitoring.
[2018-02-23] MEDS: ZOLPIDEM TARTRATE 5 MG TABLET PO PRN (23:36)
--- NOTE | 2018-02-23 23:36 | NUR ---
Sleep medication: Patient verbalized difficulty falling asleep, requested medication. Administered Ambien per MD order at this time. Education provided regarding medication's side effects, patient verbalized understanding. Safety and fall precautions in place. Call light is with patient. Will continue monitoring.
[2018-02-24 00:50] VITALS: BP_SYST 120
--- NOTE | 2018-02-24 01:47 | NUR ---
Rounds: Patient is sleeping, no signs or symptoms of acute distress noted. Breathing is even and unlabored. Safety and fall precautions in place. Will continue to monitor.
--- NOTE | 2018-02-24 03:50 | NUR ---
Rounds: Patient is in bed asleep, does not show any signs or symptoms of acute distress. Safety and fall precautions in place, call light remains with patient. Will continue monitoring.
[2018-02-24] MEDS: metroNIDAZOLE 500 mg/NS 100 ML IV SCH ×2 (05:07→13:28)
[2018-02-24] MEDS: NACL 0.9% 1,000 ML IV SCH (05:08)
--- NOTE | 2018-02-24 06:01 | NUR ---
Closing note: Patient is asleep, no signs or symptoms of acute distress. Patient's breathing even and unlabored. IV fluids infusing well to patient's right antecubital IV site. All needs met and attended to. Safety and fall precautions in place. Will endorse care to dayshift RN.
[2018-02-24] MEDS: LEVOTHYROXINE SODIUM 0.075 MG TABLET PO SCH (06:06)
[2018-02-24] MEDS: PIPERACILLIN/TAZO 3.375/DEX-IS 50 ML IV SCH ×2 (06:06→11:30)
[2018-02-24] MEDS: PANTOPRAZOLE SODIUM 40 MG TAB PO SCH (06:06)
[2018-02-24] MEDS: INSULIN REGULAR, HUMAN 100 UNITS/ML, 10 ML VIAL (novoLIN R) SUBCUT PRN ×2 (06:10→13:31)
[2018-02-24 08:00] VITALS: BP_SYST 136
--- NOTE | 2018-02-24 08:00 | NUR ---
Note Pt sitting up in bed eating her breakfast. No SOB/resp distress or chest pain/discomfort was noted at this time. Tele unit attached and intact at this time. IV in right AC intact and patent infusing IVF's well at this time. No needs noted. Call light within reach.
[2018-02-24] MEDS: FLECAINIDE ACETATE 50 MG TABLET (TAMBOCOR) PO SCH (08:53)
[2018-02-24] MEDS: METOPROLOL TARTRATE 50 MG TABLET PO SCH (08:56)
[2018-02-24] MEDS: APIXABAN 2.5 MG TABLET PO SCH (08:56)
--- NOTE | 2018-02-24 10:00 | NUR ---
Note Pt's tele unit was dc'd and returned to set up technician (pt discharged today).
[2018-02-24 12:00] VITALS: BP_SYST 115
--- NOTE | 2018-02-24 12:00 | NUR ---
Note Pt has been ambulating to restroom with RN - gait weak and pt denies any dizziness or light headedness at this time. Dr Ordaz did rounds and assessment was completed at around 09am. Dr Maxwell was called and discharge order for today was given. No needs noted. Call light within reach.
[2018-02-24 13:38] VITALS: BP_SYST 127
--- NOTE | 2018-02-24 14:45 | NUR ---
Note Pt resting in bed with IVPB antibiotics infusing well through right AC IV site. Pt's family will be here to pick pt up around 1600. No needs noted. Call light within reach.
[2018-02-24] MEDS: SIMVASTATIN 40 MG TABLET PO SCH (14:46)
[2018-02-24] MEDS: LEVOFLOXACIN 500 MG/D5W 100 ML IV SCH (15:08)
--- NOTE | 2018-02-24 15:27 | NUR ---
Building Principal Note Patient referred to Building Principal by Katelin NAYAK. Patient requested to speak with a Accounting File Clerk. APPLICATION SOFTWARE DEVELOPER met with patient at bedside. Patient stated she may need more help at home. Her and her daughters work. APPLICATION SOFTWARE DEVELOPER provided patient with the information on [facility]. APPLICATION SOFTWARE DEVELOPER also discussed transportation ([employer]) and [facility]. APPLICATION SOFTWARE DEVELOPER provided contact numbers. Patient stated [facility] has a nurse that comes out once a week to assist. Patient stated she does not have transportation assistance to doctor appointments from [facility]. APPLICATION SOFTWARE DEVELOPER left patient with Social Service contact information and discussed above with Katelin ANYAK. APPLICATION SOFTWARE DEVELOPER phoned patient's HCP/[facility]/PA SANDI Wade, , and discussed above. She will contact patient's daughter and discuss [facility] services that patient may be eligible for.
--- NOTE | 2018-02-24 15:34 | NUR ---
DCP. MET WITH PT. A/O. LIVES WITH FAMILY. HAS A FWW. LEFT A MESSAGE TO JV, KATIE [phone]. RE DCP. REFERRED TO ACM FROM HCP FOR POST DISCHARGE CALL. FF UP WITH PCP . FF UP WITH DR BUENO. WILL REFER TO FOR [facility] CAREGIVER. ROBSON HUBBARD RN/SANDI T [phone]
[2018-02-24 16:00] VITALS: BP_SYST 136
--- NOTE | 2018-02-24 16:30 | NUR ---
Note Pt was given discharge instructions and prescription. Questions/concerns were answered at this time. Pt packed all her belongings and checked side table/drawers for belongings. Pt appears anxious and nervous about going home at this time. Pt instructed to rest in bed - pt was reassured and concerns were answered at this time. Pt's IV was saline locked at this time. Pt's vital signs were WNL - heart rate started increasing due to her anxiousness. No needs noted. Pt waiting for family to come in and bring her street clothes for discharge home. Pt has call light within reach.
--- NOTE | 2018-02-24 17:15 | NUR ---
Note Pt dressed in street clothes and IV in right AC was dc'd - site has no swelling/redness noted at this time. Pt has bleeding due to pt taking Eliquis PO for atrial fibrillation. Pt off the floor via wheelchair to private car with all her belongings and discharge paperwork/prescription. No SOB/resp distress or severe chest discomfort noted at this time. Pt stable at this time.
== END 2018-02-24 17:15 | disposition home or self-care (01) | DRG 871 ==
LOC: SED 22:43 → STU 02-21 01:14
PROVIDERS: ADMIT Internal Medicine; ATTEND Internal Medicine
DX: A41.59 Other Gram-negative sepsis (principal); K85.90 Acute pancreatitis without necrosis or infection, unspecified; K57.92 Diverticulitis of intestine, part unspecified, without perforation or abscess without bleeding; I48.0 Paroxysmal atrial fibrillation; E11.9 Type 2 diabetes mellitus without complications; I10 Essential (primary) hypertension; R74.0 Nonspecific elevation of levels of transaminase and lactic acid dehydrogenase [LDH]; E03.9 Hypothyroidism, unspecified; E78.5 Hyperlipidemia, unspecified; K21.9 Gastro-esophageal reflux disease without esophagitis; M10.9 Gout, unspecified; Z90.710 Acquired absence of both cervix and uterus; Z98.1 Arthrodesis status; Z90.49 Acquired absence of other specified parts of digestive tract; Z79.899 Other long term (current) drug therapy; Z79.84 Long term (current) use of oral hypoglycemic drugs; Z91.14 Patient's other noncompliance with medication regimen
CPT/HCPCS: 36415; 71045; 76700-TC; 80053; 80061; 80074; 81000-TC; 82962; 83605; 83690-TC; 84484; 85025; 87040-TC; 87081; 87086; 87186-TC; 93005; 96361; 96374; 99285; J1815; J1956; J2270; J2543; J3490; J7030; J7060

== ENCOUNTER 2021-10-29 18:14 | Emergency (ER) | payer OTHER, MEDICAID ==
[~2021-10-29] VITALS: Ht 165.1 cm; Wt 64.4 kg
[~2021-10-29 18:14] MED LIST changes: -GLIM4TAB2 PO; +GLIM4TAB37 PO; -METO-442 PO; +OMEP40CA20 PO; -OMEP40CA33 PO; -OXYB5TAB11 PO; +OXYB5TAB18 PO
[2021-10-29 18:21] VITALS: BP_SYST 143
--- NOTE | 2021-10-29 18:21 | NUR ---
Placed in room 08 . Placed on nuclear monitoring technician, blood pressure machine and pulse oximeter. To gown for exam. Side rails up.
--- NOTE | 2021-10-29 18:24 | NUR ---
Dr Junior submitted orders for patient
--- NOTE | 2021-10-29 18:57 | NUR ---
pt was brought in with sob by her from home in private vehicle. pt place on leads and vitals assessed, all vs are within normal limits. o2 sat is at 96. pt denies any pain. pt in bed resting with bed lowered and locked, and rails up. Addendum: 10/29/21 at 1914 by MANJINDER asssessed pt antirior lung bernardo, clear sounds auscultated
[2021-10-29 19:27] LABS: BILIRUBIN,URINE NEGATIVE (NEGATIVE); BLOOD, URINE 1+ (NEGATIVE); CLARITY/URINE CLEAR (CLEAR); COLOR,URINE YELLOW (YELLOW); GLUCOSE,URINE NEGATIVE (NEGATIVE); KETONES,URINE NEGATIVE (NEGATIVE); LEUKOCYTE ESTERASE ,URINE NEGATIVE (NEGATIVE); NITRITE, URINE NEGATIVE (NEGATIVE); PROTEIN URINE NEGATIVE (NEGATIVE); UROBILINOGEN,URINE 0.2 (0.2-1.0)
[2021-10-29 19:29] LABS: ACETONE, SERUM NEGATIVE (NEGATIVE)
[2021-10-29 19:30] LABS: ANION GAP 10 (5-15); CALCIUM 8.6 mg/dL (8.4-11.0); CHLORIDE 96 mmol/L (98-107); CREATININE 1.14 mg/dL (0.55-1.30); GLUCOSE 192 mg/dL (70-99); POTASSIUM 4.3 mmol/L (3.5-5.1); SODIUM SERUM 130 mmol/L (136-145); UREA NITROGEN, BLOOD 18 mg/dL (8-21)
--- NOTE | 2021-10-29 19:30 | NUR ---
report given to MALINI Rodrigez
[2021-10-29 19:35] LABS: ALANINE AMINOTRANSFERASE 21 U/L (12-78); ASPARTATE AMINOTRANSFERASE 15 U/L (10-37); LIPASE 88 U/L (73-393); TOTAL BILIRUBIN 0.2 mg/dL (0.0-1.0)
--- NOTE | 2021-10-29 19:46 | NUR ---
COVID swab obtained at 19:39 and sent to lab at 19:40.
[2021-10-29 19:50] LABS: BASOPHILS # (AUTO) 0.1 K/uL (0.0-0.2); BASOPHILS % (AUTO) 2.1 % (0.0-2.0); EOSINOPHILS # (AUTO) 0.1 K/uL (0.0-0.4); EOSINOPHILS % (AUTO) 0.9 % (0.0-4.0); HEMOGLOBIN 11.5 g/dL (12.0-16.0); LYMPHOCYTES # (AUTO) 0.6 K/uL (1.0-5.5); LYMPHOCYTES % (AUTO) 9.6 % (20.5-51.5); MEAN CORPUSCULAR HEMOGLOBIN 28 pg (27-31); MEAN CORPUSCULAR HGB CONC 33 % (32-36); MEAN CORPUSCULAR VOLUME 84 fL (79.0-98.0); MONOCYTES # (AUTO) 0.4 K/uL (0.0-1.0); MONOCYTES % (AUTO) 6.5 % (1.7-9.3); NEUTROPHILS # (AUTO) 5.3 K/uL (1.8-7.7); NEUTROPHILS % (AUTO) 80.9 % (40.0-70.0); PLATELET COUNT (AUTO) 253 K/uL (130-430); RED BLOOD CELL COUNT(AUTO) 4.18 MIL/uL (4.2-6.2); RED CELL DISTRIBUTION WIDTH 19.7 % (9.0-15.0); WHITE BLOOD COUNT (AUTO) 6.5 K/uL (4.8-10.8)
--- NOTE | 2021-10-29 19:57 | NUR ---
received report from morning nurse. pat is alert and oriented. in the bedside. patient is tachy. pulse 111.
[2021-10-29] MEDS ORDERED: MAG HYDROX/AL HYDROX/SIMETH 30 ML, DICYCLOMINE HCL 20 MG, LIDOCAINE VISCOUS 2% 15ML (PO... PO ONE ×3 (20:15)
[2021-10-29] MEDS ORDERED: HYDROcodone/ACETAMIN 7.5-325 MG TAB PO ONE (20:15)
[2021-10-29] MEDS ORDERED: IOHEXOL 350 mgI/mL, 150 ML INFUS..BTL IV ONE (20:35)
[2021-10-29 20:41] LABS: BACTERIA,URINE FEW /HPF (None Seen); MUCUS,URINE None Seen /LPF (None Seen); WBC,URINE 0-3 /HPF (0-3)
[2021-10-29] MEDS ORDERED: OMEP20CA15 PO (21:12)
[2021-10-29] MEDS ORDERED: HYDR-3917 PO (21:12)
[2021-10-29 22:01] VITALS: BP_SYST 103
== END 2021-10-29 22:01 | disposition home or self-care (01) ==
LOC: SED 18:14
DX: I11.0 Hypertensive heart disease with heart failure (principal); K29.70 Gastritis, unspecified, without bleeding; E11.9 Type 2 diabetes mellitus without complications; Z20.822 Contact with and (suspected) exposure to COVID-19
CPT/HCPCS: 36415; 71045; 71275; 74176; 76376; 80053; 81000; 82009; 82962; 83605; 83690; 83880; 84484; 85025; 87426; 93005; 99285; J2001; Q9967

== ENCOUNTER 2023-08-08 06:32 | Day surgery (SDC) | payer MEDICAID, OTHER ==
[~2023-08-08] VITALS: Ht 167.6 cm; Wt 63.5 kg
[~2023-08-08 06:32] MED LIST changes: +DIT5 PO; +HYDR-3917 PO; +OMEP20CA15 PO; -OXYB5TAB18 PO; +SIMV-345 PO; -SIMV40TA2 PO
[2023-08-08] MEDS ORDERED: SIMETHICONE 40 MG/0.6 ML ML ONE (08:13)
[2023-08-08 08:30] VITALS: O2SAT 100
[2023-08-08] MEDS: INDOMETHACIN 50 MG SUPP.RECT RC ONE (08:45)
[2023-08-08] MEDS ORDERED: PROPOFOL 200MG/ 20ML VIAL (DIPRIVAN) IV ONE (09:34)
[2023-08-08] MEDS ORDERED: DEXAMETHASONE SOD PHOSPHATE 4 MG/ML VIAL ONE (09:34)
[2023-08-08] MEDS ORDERED: ePHEDrine sulfate 50 MG/ML VIAL ONE (09:34)
[2023-08-08] MEDS ORDERED: NS 1000 ML IV.SOLN IV ONE (09:34)
[2023-08-08] MEDS ORDERED: LIDOCAINE 2%, 20 ML MDV ONE (09:34)
[2023-08-08] MEDS ORDERED: PHENYLEPHRINE HCL 10 MG/ML VIAL (NEOSYNEPHRINE) ONE (09:34)
[2023-08-08] MEDS ORDERED: GLYCOPYRROLATE 0.2 MG/ML VIAL ONE (09:34)
[2023-08-08] MEDS ORDERED: SEVOFLURANE 15 MIN GAS INH ONE (09:34)
[2023-08-08] MEDS ORDERED: METOCLOPRAMIDE HCL 10 MG/2 ML VIAL ONE (09:34)
[2023-08-08] MEDS ORDERED: ROCURONIUM BROMIDE 10 MG/ML (ZEMURON) ONE (09:34)
[2023-08-08] MEDS ORDERED: ONDANSETRON HCL 4 MG/2 ML VIAL ONE (09:34)
[2023-08-08 18:09] VITALS: BP_SYST 126; PULSE 60; RESP 16
== END 2023-08-08 12:56 | disposition home or self-care (01) ==
LOC: SDS 06:32 → SMU 06:32 → EDSTATUS 08:00 → SDS 12:56
PROVIDERS: ATTEND Internal Medicine Gastroenterology
DX: K83.8 Other specified diseases of biliary tract (principal); K80.50 Calculus of bile duct without cholangitis or cholecystitis without obstruction; I12.9 Hypertensive chronic kidney disease with stage 1 through stage 4 chronic kidney disease, or unspecified chronic kidney disease; E11.22 Type 2 diabetes mellitus with diabetic chronic kidney disease; N18.9 Chronic kidney disease, unspecified; Z79.01 Long term (current) use of anticoagulants; Z79.899 Other long term (current) drug therapy; Z87.891 Personal history of nicotine dependence
CPT/HCPCS: 43277; 93005; 71045; 74328; 82948; J1100; J3490; J2765; J2405; J2370; J2704; J7030; 76000; J2001